=== PATIENT | female | born 1960 | race Hispanic/Latino ===

== ENCOUNTER 2020-07-12 10:39 | Emergency (ER) | payer BC, SELFPAY ==
[2020-07-12] VITALS (21 sets, daily range): BP systolic 120–175; BP diastolic 68–124; PULSE 70–91; RESP 15–32; TEMP 38.1; O2SAT 93–97
--- NOTE | ~2020-07-12 | XR_ITS ---
XR chest 1V portable DATE: 07/12/2020 11:19 INDICATION: Cough, shortness of breath TECHNIQUE: Portable AP views on 07/12/2020 at 1115 hours COMPARISON: None FINDINGS: There is discoid atelectasis and mild infiltrate in the mid and lower lung zones, right gre ater than left. Normal heart size. Aortic arch calcification mild unfolding. No hilar or mediastinal enlargement. No pleural effusion or pneumothorax. Mild elevation of right leaf of diaphragm. Osteopenia. IMPRESSION: Bilateral mid and lower lung infiltrate and/atelectasis, greater on the right Reviewed, dictated and finalized at location A. TEGIC DEVELOPMENT MANAGER
--- NOTE | 2020-07-12 10:54 | ECG_ITS ---
Measurements Intervals [place] Rate: 89 P: 17 DC: 146 QRS: -68 QRSD: 100 T: -5 QT: 282 QTc: 345 Interpretive Statements SINUS RHYTHM LEFT ANTERIOR FASCICULAR BLOCK BORDERLINE T WAVE ABNORMALITY- INFERIOR LEADS ABNORMAL ECG Electronically Signed On 07-12-2020 15:44:29 LABORER AIRPORT MAINTENANCE by Giovanni Burrell D.O.
[2020-07-12 10:58] LABS: Glucose Point of Care 211 (65-105)
--- NOTE | 2020-07-12 11:29 | ED.SOB ---
HPI - SOB/Dyspnea General Chief Complaint: Shortness of Breath/Dyspnea Stated Complaint: sob, weakness, n/v Time Seen by Provider: 07/12/20 10:53 Source: patient Mode of arrival: EMS Limitations: language barrier ([employer] complaint supervisor used) History of Present Illness HPI Narrative: This is a 60-year-old female that presents the emergency department for cold symptoms x8 days. Reports her children recently tested positive for coronavirus. Reports cough, nausea, vomiting, and diarrhea. Also reports fever and myalgias. Reports intermittent shortness of breath. Reports chest pain only while coughing. Reports generalized weakness because she has not been able to eat much. Denies abdominal pain or dysuria. Related Data Allergies Allergy/AdvReac Type Severity Reaction Status Date / Time No Known Allergies Allergy Verified 07/12/20 15:12 Review of Systems Review of Systems: Narrative: CONSTITUTIONAL: Reports fever ENT: Denies rhinorrhea, congestion, sore throat CARDIOVASCULAR: Reports chest pain. Denies edema. RESPIRATORY: Reports cough or dyspnea. GASTROINTESTINAL: Reports nausea vomiting and diarrhea. Denies abdominal pain GENITOURINARY: Denies dysuria MUSCULOSKELETAL: Reports myalgia. NEUROLOGIC: Reports generalized weakness and headache. All systems reviewed & are unremarkable except as noted in HPI and below PMFSH Past Medical History Medical History (Updated 07/12/20 @ 16:11 by Rachel Barry PA-C) History of diabetes mellitus History of hyperlipidemia History of hypertension Exam Narrative: Exam Narrative: GENERAL: Well-appearing, well-nourished, and in no acute distress. HEAD: Normocephalic, atraumatic. EYES: EOMI. ENT: Nares clear, no rhinorrhea or epistaxis. Mucous membranes moist. Oropharynx without tonsillar hypertrophy exudate or other lesions. Bilateral TMs pearly kan non-bulging NECK: Supple. No adenopathy or masses. CHEST: Clear to auscultation. No respiratory distress. No wheezes rales or rhonchi HEART: Regular rate and rhythm. No murmur heard. Normal peripheral pulses. ABDOMEN: Soft, nontender, nondistended, normal active bowel sounds. No CVA tenderness EXTREMITIES: Normal range of motion. No edema. SKIN: Warm, dry, no rash. NEURO: No focal deficits. Alert and oriented x3. PSYCH: Normal mood and affect Course Vital Signs Vital signs: Vital Signs Pulse Oximetry 97 11/29/20 10:46 Temperature 100.6 F H 07/12/20 11:10 Pulse Rate 70 07/12/20 15:00 Respiratory Rate 15 07/12/20 15:00 Blood Pressure 125/78 07/12/20 15:00 Pulse Oximetry 96 07/12/20 15:00 MDM - SOB/Dyspnea MDM Narrative Medical decision making narrative: Patient presents the emergency department for cold symptoms x8 days. Febrile upon arrival, given antipyretic in the ED. Oxygen saturation has remained normal on room air. CBC is without leukocytosis. Does show hemoconcentration. Metabolic panel shows transaminitis, and elevated LDH likely due to coronavirus infection. UA without obvious sign of infection. This will go for a culture. Lactic acid is normal. Influenza screen is negative. SARS-CoV-2 was sent. EKG without concerning findings. Chest x-ray shows bilateral mid and lower lung infiltrates. Patient will be treated for bacterial pneumonia pending Covid results. Patient was hydrated while in the ED. Patient is stable and felt appropriate for further outpatient evaluation. She was given warnings to return to the ER Lab Data Attestation: I reviewed the patient's lab results. Result diagrams: 07/12/20 11:22 07/12/20 11:22 Labs: Lab Results 07/12/20 07/12/20 07/12/20 Range/Units 10:51 11:22 11:22 WBC 4.8 (4.5-10.0) K/mm3 RBC 5.17 (4.2-5.4) M/mm3 Hgb 16.4 H (12.0-15.0) g/dL Hct 46.3 (37.0-47.0) % MCV 89.6 (80-100) fl MCH 31.7 (26-34) pg MCHC 35.4 (32-36) g/dl RDW 12.7 (11.5-14.5) % Plt Count 115 L (150-375) k/mm3
[2020-07-12 11:41] LABS: Basophils Percent Auto 0.2 % (0.2-1.2); Hematocrit 46.3 % (37.0-47.0); Hemoglobin 16.4 g/dL (12.0-15.0); Immature Granulocyte Absolute 0.02 K/mm3 (0.00-0.031); Immature Granulocyte Percent A 0.4 % (0-0.5); Immature Platelet Fraction Pct 4.8 % (0.9-11.2); Lymphocytes Absolute Auto 0.96 K/mm3 (0.9-3.2); Mean Corpuscular HGB Conc 35.4 g/dl (32-36); Mean Corpuscular Hemoglobin 31.7 pg (26-34); Mean Corpuscular Volume 89.6 fl (80-100); Mean Platelet Volume 11.1 fl (7.4-10.4); Monocytes Absolute Auto 0.3 K/mm3 (0.1-0.6); Monocytes Percent Auto 7.1 % (2.6-8.5); Neutrophils Absolute Auto 3.5 K/mm3 (1.3-6.7); Neutrophils Percent Auto 72.3 % (45.5-73.1); Platelet Count Result 115 k/mm3 (150-375); Red Blood Count 5.17 M/mm3 (4.2-5.4); Red Cell Distribution Width 12.7 % (11.5-14.5); White Blood Count 4.8 K/mm3 (4.5-10.0)
[2020-07-12] MEDS: ONDANSETRON INJ 4 MG/2 ML VIAL IV PUSH (11:44)
[2020-07-12] MEDS: SODIUM CHLORIDE 0.9% IV 500 ML 999 ML IV CONT ×2 (11:44→15:38)
[2020-07-12 11:52] LABS: Lactic Acid Reflex 1.2 mmol/L (0.7-2.1)
[2020-07-12 12:02] LABS: NT Pro B Type Natriuretic Pept 27 PG/ML (5-100)
[2020-07-12 12:03] LABS: Alanine Aminotransferase 136 U/L (4-35); Albumin Level 3.8 g/dL (3.5-5.1); Alkaline Phosphatase 63 U/L (38-126); Anion Gap 13 mmol/L (8-16); Aspartate Amino Transferase 130 U/L (14-36); Bilirubin,Total 0.7 mg/dL (0.2-1.3); Blood Urea Nitrogen 10 mg/dL (7-17); Calcium 8.7 mg/dL (8.4-10.2); Carbon Dioxide 24 mmol/L (22-30); Chloride 101 mmol/L (98-107); Estimated CRCL calculation 93 ml/min; Estimated Glomerular Filt Rate > 60; Glucose 196 mg/dL (65-105); Potassium 3.4 mmol/L (3.4-5.0); Sodium 138 mmol/L (137-145)
[2020-07-12 12:04] LABS: Partial Thromboplastin Time 24.5 SECONDS (22.3-36.8); Prothrombin Time 13.4 Seconds (11.1-14.7)
[2020-07-12 12:16] LABS: CRP 1.9 mg/dL (<1.0); Lactate Dehydrogenase 842 U/L (313-618)
[2020-07-12 14:36] LABS: Add Urine Microscopic? YES; Appearance Urine Clear (Clear); Bilirubin Urine Negative (Negative); Blood Urine 2+ (Negative); Color Urine Yellow (Yellow); Glucose Urine UA 3+ mg/dL (Negative); Ketones Urine 2+ mg/dL (Negative); Leukocyte Esterase Ur Negative LEU/UL (Negative); Mucus Urine Few /lpf; Nitrate Urine Negative (Negative); Protein Urine 1+ mg/dL (Negative); RBC Urine 0-2 /hpf (0-2); Specific Grav Ur 1.027 (1.001-1.035); Squamous Epithelial Cell Urine Few /hpf (Few); Urobilinogen Urine Negative mg/dL (<2.0)
--- NOTE | 2020-07-12 17:21 | PCRCNOTE ---
MDI INSTRUCT COMPLETED.
[2020-07-13 11:58] LABS: SARS-CoV-2 RNA PCR Positive
== END 2020-07-12 17:30 | disposition home or self-care (01) ==
PROVIDERS: Physician Assistant; Emergency Provider Emergency Medicine; PCP Internal Medicine
DX: U07.1 COVID-19 (principal); J12.89 Other viral pneumonia; E11.9 Type 2 diabetes mellitus without complications; E78.5 Hyperlipidemia, unspecified; I10 Essential (primary) hypertension; I44.4 Left anterior fascicular block; R94.31 Abnormal electrocardiogram [ECG] [EKG]
CPT/HCPCS: 36415; 71045; 80053; 81001; 82728; 82948; 83605; 83615; 83880; 85025; 85055; 85610; 85730; 86140; 87077; 87086; 87088; 87186; 87635; 87804; 93005; 96361; 96365; 96375; 99284; C9803; J0131; J2405; J7040; U0003

== ENCOUNTER 2020-07-14 20:56 | Emergency (ER) | payer BC, SELFPAY ==
--- NOTE | ~2020-07-14 | XR_ITS ---
EXAMINATION: XR chest 1V portable DATE: 07/14/2020 21:40 INDICATION: Weakness, nausea and vomiting TECHNIQUE: frontal view of the chest was obtained. COMPARISON: Chest radiograph dated 07/12/2020 FINDINGS: Lung volumes remain small. Again seen are linear and patchy airspace opacities in the bilateral mid a nd lower lung zones which is without significant interval change in the right and with slight progres lupe in the lateral left midlung zone. No pleural effusion or pneumothorax. Cardiomediastinal silhoue tte is normal. IMPRESSION: 1. Opacities in the bilateral mid and lower lung zones with slight worsening in the left midlung zone due at least in part to atelectasis and possibly superimposed pneumonia. Reviewed, dictated and finalized at location A. PROCESSING OPERATOR IMPRESSION: 1. Opacities in the bilateral mid and lower lung zones with slight worsening in the left midlung zone due at least in part to atelectasis and possibly superim posed pneumonia.
[2020-07-14 20:58] VITALS: BP 146/83; PULSE 102; RESP 21; TEMP 38.4; O2SAT 94
--- NOTE | 2020-07-14 21:16 | ED.GENADULT ---
HPI - General Adult General Chief complaint: Nausea/Vomiting/Diarrhea Stated complaint: weakness, n/v, covid positive Source: patient History of Present Illness HPI narrative: Patient is a 60 y/o female complaining of nausea and vomiting for 1 week. She states that she is vomiting up food, liquid and medications. She is not able to keep anything down. She vomited approximately 10 times during last 24 hours. Nothing is help with her vomiting. She also has some cough, chest tightness and SOB. She was seen here on 2 days ago for similar symptoms and her COVID test was positive. Of note, patient is non Cambodian speaking. Interview is done with video cage tender. Related Data Allergies Allergy/AdvReac Type Severity Reaction Status Date / Time No Known Allergies Allergy Verified 07/12/20 15:12 Review of Systems Constitutional: Constitutional: Denies chills, Reports fever(s), Denies headache(s) and Denies weakness Eyes: Eyes: Denies blurry vision ENT: Denies headache(s) and Denies neck pain Cardiovascular: Cardiovascular: Reports chest pain and Reports dyspnea Respiratory: Respiratory: Reports cough and Reports dyspnea Gastrointestinal: Gastrointestinal: Denies abdominal pain, Reports diarrhea, Reports nausea and Reports vomiting Genitourinary: Genitourinary: Denies hematuria and Denies dysuria Musculoskeletal: Musculoskeletal: Denies back pain and Denies neck pain Neurologic: Denies headache(s) and Denies weakness PMFSH Past Medical History Medical History History of diabetes mellitus History of hyperlipidemia History of hypertension Social History Social History Gender identity (if verbalized by the patient): Female Exam Const: General: no acute distress and well developed Orientation/consciousness: oriented to person, oriented to place, oriented to time and patient oriented x3 HENMT: Head: normocephalic Ears: external ears normal General nose exam: Normal external nose present Eyes: General: appearance normal, both eyes and all related structures Conjunctivae: conjunctivae normal Neck: Neck: normal visual inspection and full ROM Chest: Chest palpation & inspection: normal inspection of the chest and no tenderness Resp: Effort & Inspection: normal respiratory effort Auscultation: clear to auscultation bilaterally Cardio: Rate: tachycardic Rhythm: regular rhythm GI: GI Palp: No abdominal tenderness and Yes Soft to palpation Skin: General skin exam: normal color and turgor normal Neuro: General: oriented to person, oriented to place, oriented to time and patient oriented x3 Cognition (Neuro): normal cognition Extrem: General: normal to inspection, full ROM and no pedal edema Psych: Appearance: grossly normal Mental Status: mental status grossly normal Affect: normal affect Course Reevaluation(s) Reevaluation #1: Rechecked. Patient is able to tolerate oral intake. Will plan discharge if repeat Troponin is negative and patient continues to tolerate oral intake. I asked Dr. Barnes to check repeat Troponin prior to discharge. Date: 07/15/20 Time: 00:10 Vital Signs Vital signs: Vital Signs Temperature 38.4 C H 07/14/20 20:58 Pulse Rate 102 H 07/14/20 20:58 Respiratory Rate 21 H 07/14/20 20:58 Blood Pressure 146/83 H 07/14/20 20:58 Pulse Oximetry 94 07/14/20 20:58 Temperature 37.2 C 07/14/20 23:27 Pulse Rate 85 07/15/20 01:01 Respiratory Rate 28 H 07/15/20 01:01 Blood Pressure 123/70 07/15/20 01:01 Pulse Oximetry 95 07/15/20 01:01 Medical Decision Making Vital Signs Vital Signs: Vital Signs Temperature 38.4 C H 07/14/20 20:58 Pulse Rate 102 H 07/14/20 20:58 Respiratory Rate 21 H 07/14/20 20:58 Blood Pressure 146/83 H 07/14/20 20:58 Pulse Oximetry 94 07/14/20 20:58 Temperature 37.2 C 07/14/20 23:27 Pulse Rate 85 07/15/20 01:01 R
[2020-07-14 21:31] LABS: Basophils Percent Auto 0.1 % (0.2-1.2); Hemoglobin 15.2 g/dL (12.0-15.0); Immature Granulocyte Absolute 0.02 K/mm3 (0.00-0.031); Immature Granulocyte Percent A 0.2 % (0-0.5); Immature Platelet Fraction Pct 4.1 % (0.9-11.2); Lymphocytes Absolute Auto 0.95 K/mm3 (0.9-3.2); Lymphocytes Percent Auto 10.7 % (18.3-44.2); Mean Corpuscular HGB Conc 35.3 g/dl (32-36); Mean Corpuscular Hemoglobin 31.5 pg (26-34); Mean Platelet Volume 11.1 fl (7.4-10.4); Monocytes Absolute Auto 0.4 K/mm3 (0.1-0.6); Monocytes Percent Auto 4.6 % (2.6-8.5); Neutrophils Absolute Auto 7.5 K/mm3 (1.3-6.7); Neutrophils Percent Auto 84.4 % (45.5-73.1); Platelet Count Result 117 k/mm3 (150-375); Red Blood Count 4.83 M/mm3 (4.2-5.4); Red Cell Distribution Width 12.6 % (11.5-14.5); White Blood Count 8.9 K/mm3 (4.5-10.0)
[2020-07-14 21:43] LABS: Alanine Aminotransferase 67 U/L (4-35); Albumin Level 3.3 g/dL (3.5-5.1); Alkaline Phosphatase 63 U/L (38-126); Anion Gap 11 mmol/L (8-16); Aspartate Amino Transferase 53 U/L (14-36); Bilirubin,Total 0.8 mg/dL (0.2-1.3); Blood Urea Nitrogen 10 mg/dL (7-17); Carbon Dioxide 23 mmol/L (22-30); Chloride 103 mmol/L (98-107); Estimated CRCL calculation 94 ml/min; Estimated Glomerular Filt Rate > 60; Glucose 202 mg/dL (65-105); Lipase 53 U/L (23-300); Potassium 3.1 mmol/L (3.4-5.0); Sodium 137 mmol/L (137-145)
[2020-07-14 21:54] LABS: Troponin I < 0.012 ng/mL (0.000-0.034)
[2020-07-14 22:00] VITALS: BP 141/77; PULSE 90; RESP 30; O2SAT 95
[2020-07-14] MEDS: POTASSIUM CHLORIDE 20 MEQ TABLET 40 MEQ PO (22:13)
[2020-07-14] MEDS: SODIUM CHLORIDE 0.9% IV 1,000 ML 999 ML IV CONT (22:13)
[2020-07-14] MEDS: ACETAMINOPHEN 325 MG TABLET 650 MG PO (22:13)
[2020-07-14] MEDS: METOCLOPRAMIDE HCL INJ 10 MG/2 ML VIAL IV PUSH (22:13)
[2020-07-14 23:01] VITALS: BP 117/58; PULSE 83; RESP 34; O2SAT 95
[2020-07-14 23:17] LABS: Alveolar/Arterial O2 Gradient 52.7 mmHg; Base Excess ABG -4.5 mEq/l (+/-2.0); Device ROOM AIR; Fractional Inspired Oxygen 21 %; Modified Allen's Test Pass; Oxygen Content ABG 18.5 %vol (16.0-22.0); Oxygen Saturation ABG 91.5 % (95.0-100.0); PO2 ABG 59.9 mmHg (80.0-100.0); PO2 FiO2 Ratio Arterial Blood 2.85 %; Site Drawn RIGHT RADIAL; Total Hemoglobin 14.5 g/dL (12.0-18.0); pH ABG 7.406 (7.350-7.450)
[2020-07-14 23:27] VITALS: BP 117/58; PULSE 89; RESP 32; TEMP 37.2; O2SAT 95
[2020-07-15 00:01] VITALS: BP 121/68; PULSE 84; RESP 33; O2SAT 94
[2020-07-15 00:02] LABS: Add Urine Microscopic? YES; Appearance Urine Clear (Clear); Bilirubin Urine Negative (Negative); Blood Urine Negative (Negative); Color Urine Yellow (Yellow); Glucose Urine UA 3+ mg/dL (Negative); Ketones Urine 2+ mg/dL (Negative); Leukocyte Esterase Ur Negative LEU/UL (Negative); Mucus Urine Moderate /lpf; Nitrate Urine Negative (Negative); Protein Urine 1+ mg/dL (Negative); RBC Urine 0-2 /hpf (0-2); Specific Grav Ur 1.026 (1.001-1.035); Squamous Epithelial Cell Urine Occasional /hpf (Few); Urobilinogen Urine Negative mg/dL (<2.0)
[2020-07-15 01:01] VITALS: BP 123/70; PULSE 85; RESP 28; O2SAT 95
[2020-07-15 01:05] LABS: Troponin I < 0.012 ng/mL (0.000-0.034)
== END 2020-07-15 01:20 | disposition home or self-care (01) ==
PROVIDERS: Emergency Provider Emergency Medicine; PCP Internal Medicine
DX: U07.1 COVID-19 (principal); R11.2 Nausea with vomiting, unspecified; E11.9 Type 2 diabetes mellitus without complications; E78.5 Hyperlipidemia, unspecified; I10 Essential (primary) hypertension
CPT/HCPCS: 36415; 36600; 71045; 80053; 81001; 82805; 83690; 84484; 85025; 85055; 96361; 96374; 99284; A9270; J2765; J7030

== ENCOUNTER 2022-12-28 22:27 | Emergency (ER) | payer BC, SELFPAY ==
--- NOTE | ~2022-12-28 | XR_ITS ---
Portable chest x-ray Comparison: 07/14/2020 Clinical History: Epigastric pain Findings: There is a linear bibasilar scarring or atelectasis. Lungs are otherwise clear. No pleural effusion or pneumothorax. Cardiomediastinal silhouette is stable. Bones and soft tissues are unrema rkable. Impression: Low lung volumes with linear bibasilar scarring or atelectasis. Reviewed, dictated and finalized at location . Impression: Low lung volumes with linear bibasilar scarring or atelectasis.
--- NOTE | ~2022-12-28 | CT_ITS ---
CT of the Abdomen and Pelvis: Indication: Abdominal pain Technique: 2.5 mm axial scans were obtained through the abdomen and pelvis following intravenous adm inistration of 100 cc of Omnipaque 350. Dose reduction technique was used on this scan by utilizing a utomated exposure control and iterative reconstruction technique. The dose-length product (DLP) was 9 42.50 mGy-cm. Findings: Scans through the lung bases are unremarkable. Probable fatty infiltration of liver noted. The spleen, pancreas, adrenals and kidneys are within nor mal limits. 1.2 cm calcified gallstone is present. No evidence of aortic aneurysm. No lymphadenopath y. No bowel obstruction or bowel wall thickening. There is no evidence to suggest acute appendicitis. Sm all fat-containing umbilical hernia noted. Images through the pelvis were performed. Urinary bladder is unremarkable. Exophytic fibroid measures 3.7 cm in diameter. No other adnexal mass seen. No ascites. Impression: Cholelithiasis. Probable fatty infiltration of liver. 3.7 cm exophytic fibroid. Small fat-containing umbilical hernia. Reviewed, dictated and finalized at location . Impression: Cholelithiasis. Probable fatty infiltration of liver. 3.7 cm exophytic fibroid. Small fat-containing umbilical hernia.
[2022-12-28 22:33] VITALS: BP 155/82; PULSE 86; RESP 20; TEMP 36.4; O2SAT 100
[2022-12-28 22:48] LABS: Basophils Percent Auto 0.3 % (0.2-1.2); Eosinophils Absolute Auto 0.1 K/mm3 (0-0.3); Eosinophils Percent Auto 1.6 % (0-4.4); Hematocrit 44.9 % (37.0-47.0); Hemoglobin 15.3 g/dL (12.0-15.0); Immature Granulocyte Absolute 0.01 K/mm3 (0.00-0.031); Immature Granulocyte Percent A 0.1 % (0-0.5); Lymphocytes Absolute Auto 3.92 K/mm3 (0.9-3.2); Lymphocytes Percent Auto 50.7 % (18.3-44.2); Mean Corpuscular HGB Conc 34.1 g/dl (32-36); Mean Corpuscular Volume 91.1 fl (80-100); Monocytes Absolute Auto 0.7 K/mm3 (0.1-0.6); Monocytes Percent Auto 8.7 % (2.6-8.5); Neutrophils Percent Auto 38.6 % (45.5-73.1); Platelet Count Result 193 k/mm3 (150-375); Red Blood Count 4.93 M/mm3 (4.2-5.4); Red Cell Distribution Width 13.5 % (11.5-14.5); White Blood Count 7.7 K/mm3 (4.5-10.0)
[2022-12-28 23:03] LABS: Appearance Urine Clear (Clear); Bacteria Urine None Seen /hpf; Bilirubin Urine Negative (Negative); Blood Urine 1+ (Negative); Color Urine Yellow (Yellow); Glucose Urine UA 3+ mg/dL (Negative); Ketones Urine Negative (Negative); Leukocyte Esterase Ur Negative LEU/UL (Negative); Nitrate Urine Negative (Negative); Non Pathogenic Casts 0-2; Protein Urine Negative (Negative); RBC Urine 0-2 /hpf (0-2); Squamous Epithelial Cell Urine None seen /hpf (Few); Urobilinogen Urine 0.2 mg/dL (<2.0)
[2022-12-28 23:03] LABS: Alanine Aminotransferase 41 U/L (6-35); Albumin Level 4.8 g/dL (3.5-5.1); Alkaline Phosphatase 104 U/L (38-126); Anion Gap 11 mmol/L (8-16); Aspartate Amino Transferase 32 U/L (14-36); Bilirubin,Total 0.6 mg/dL (0.2-1.3); Blood Urea Nitrogen 17 mg/dL (7-17); Calcium 9.4 mg/dL (8.4-10.2); Carbon Dioxide 24 mmol/L (22-30); Chloride 103 mmol/L (98-107); Estimated CRCL calculation 79 ml/min; Estimated Glomerular Filt Rate > 60; Glucose 158 mg/dL (65-110); Lipase 105 U/L (23-300); Potassium 3.6 mmol/L (3.4-5.0); Sodium 138 mmol/L (137-145)
[2022-12-28 23:09] VITALS: BP 141/66; PULSE 83; RESP 21; TEMP 36.6; O2SAT 98
--- NOTE | 2022-12-28 23:28 | PC.NURSE ---
Patient's daughter states that the mother had a gallstone dx back in December 2021. Per patient's daughter the doctor that gave the diagnosis did not remove or have a plan to remove the gallstone.
[2022-12-28 23:29] LABS: Add Urine Microscopic? YES
--- NOTE | 2022-12-29 00:15 | ECG_ITS ---
Measurements Intervals [place] Rate: 77 P: 49 ME: 165 QRS: -33 QRSD: 102 T: 9 QT: 310 QTc: 351 Interpretive Statements SINUS RHYTHM LEFT AXIS DEVIATION PATTERN CONSISTENT WITH PULMONARY DISEASE BORDERLINE T WAVE ABNORMALITY- INFERIOR LEADS BORDERLINE ECG COMPARED TO ECG 07/12/2020 10:49:55 NO SIGNIFICANT CHANGES Electronically Signed On 12-29-2022 6:24:07 CDT by Giovanni Burrell D.O.
--- NOTE | 2022-12-29 00:18 | ED.ABDPAIN ---
HPI - Abdominal Pain General Chief Complaint: Abdominal Pain <AMY Willis Last Filed: 12/29/22 02:59> Stated Complaint: kidney stone, right side pain <Kizzy Mckeon PA-C - Last Filed: 12/29/22 02:59> Time Seen by Provider: 12/28/22 23:12 <Kizzy Mckeon PA-C - Last Filed: 12/29/22 02:59> History of Present Illness HPI narrative: 62-year-old Bahamian-speaking female with a history of gallstones, s/p umbilical hernia repair, diabetes, hyperlipidemia and hypertension reports for evaluation of epigastric pain, fatigue, back pain, periumbilical pain, and intermittent hot and cold flashes x3 weeks. Fiber Artist used to obtain history. Patient reports she thinks she has gallstones . She was diagnosed with gallstones approximately 1 year ago from her PCP via ultrasound and was subsequently sent to a surgeon. States she was told at that time that her pain had to get worsen for her to get a cholecystectomy. States since then her pain has increasingly worsened especially over the past 3 weeks. She reports 2 episodes of vomiting today with associated nausea. Denies urinary symptoms, known fever, rash, chest pain. Reports she has been told by her PCP she is not supposed to take ibuprofen, she is unsure the reasoning. <Kizzy Mckeon PA-C - Last Filed: 12/29/22 02:59> Related Data Allergies/Adverse Reactions: Allergies Allergy/AdvReac Type Severity Reaction Status Date / Time No Known Allergies Allergy Verified 07/12/20 15:12 <Kizzy Mckeon PA-C - Last Filed: 12/29/22 02:59> Review of Systems Review of Systems: CONSTITUTIONAL: Denies fever, chills EYES: Denies visual changes, redness, or discharge. ENT: Denies rhinorrhea, congestion, sore throat, or otalgia. CARDIOVASCULAR: Denies chest pain, palpitations, or edema. RESPIRATORY: Denies cough or dyspnea. GASTROINTESTINAL: See HPI GENITOURINARY: Denies dysuria or hematuria. SKIN: Denies rash or itching. MUSCULOSKELETAL: See HPI NEUROLOGIC: Denies headache, numbness, dizziness, or weakness. PSYCHIATRIC: Denies anxiety or depression. <Kizzy Mckeon PA-C - Last Filed: 12/29/22 02:59> [facility] Past Medical History Medical History: Medical History History of diabetes mellitus History of hyperlipidemia History of hypertension <Kizzy Mckeon PA-C - Last Filed: 12/29/22 02:59> Social History Social History: Social History Gender identity (if verbalized by the patient): Female <Kizzy Mckeon PA-C - Last Filed: 12/29/22 02:59> Exam Narrative: GENERAL: Well-appearing, in no acute distress. Patient resting comfortably in exam bed. HEAD: Normocephalic EYES: PERRLA ENT: Nares clear. Mucous membranes moist. Oropharynx without tonsillar hypertrophy exudate or other lesions. NECK: Supple. CHEST: No respiratory distress. Clear to auscultation, no adventitious breath sounds. HEART: Regular rate and rhythm. No murmur heard. Normal peripheral pulses. ABDOMEN: Normal active bowel sounds. Abdomen soft. Small umbilical hernia present, easily reducible, no overlying skin changes. Tenderness to the epigastrium without guarding or rigidity. Negative Benjamin sign. No peritoneal signs. No CVA tenderness. EXTREMITIES: Normal range of motion. No edema. SKIN: Warm, dry, no rash. NEURO: No focal deficits. Alert and oriented x3. PSYCH: Normal mood and affect. <Kizzy Mckeon PA-C - Last Filed: 12/29/22 02:59> Course LUMBER BUYER/PA Physician Supervision This is a was performed by both a physician and an APC. I performed all aspects of the MDM as documented w/ the following additions: 62-year-old Bahamian-speaking female with history of symptomatic cholelithiasis presenting with right upper quadrant abdominal pain. Workup showed no evidence of acute cholecystitis. Patient improved with sympt
[2022-12-29 00:54] LABS: Lactic Acid Reflex 1.1 mmol/L (0.7-2.0)
[2022-12-29] MEDS: ACETAMINOPHEN 500 MG TABLET 1000 MG PO (00:55)
[2022-12-29] MEDS: ONDANSETRON INJ 4 MG/2 ML VIAL IV PUSH (00:57)
[2022-12-29] MEDS: FAMOTIDINE 20 MG/2 ML VIAL IV PUSH (00:57)
[2022-12-29] MEDS: SODIUM CHLORIDE 0.9% IV 1,000 ML 999 ML IV CONT (00:57)
[2022-12-29] MEDS: MORPHINE SULFATE (*CRX) 4 MG/ML INJ IV PUSH (01:03)
[2022-12-29 01:13] LABS: Troponin I < 0.012 ng/mL (0.000-0.034)
[2022-12-29 01:47] VITALS: BP 106/49; PULSE 72; RESP 23; O2SAT 94
[2022-12-29 02:20] VITALS: BP 103/53; PULSE 71; RESP 21; O2SAT 94
[2022-12-29 02:56] VITALS: BP 129/60; PULSE 62; RESP 23; TEMP 36.6; O2SAT 94
== END 2022-12-29 02:57 | disposition home or self-care (01) ==
PROVIDERS: Emergency Medicine; Emergency Provider Physician Assistant; PCP Internal Medicine
DX: K80.20 Calculus of gallbladder without cholecystitis without obstruction (principal); R11.2 Nausea with vomiting, unspecified; E11.9 Type 2 diabetes mellitus without complications; E78.5 Hyperlipidemia, unspecified; I10 Essential (primary) hypertension
CPT/HCPCS: 36415; 71045; 74177; 80053; 81001; 83605; 83690; 84484; 85025; 87086; 93005; 96361; 96374; 96375; 99284; A9270; J2270; J2405; J7030; Q9967